=== PATIENT | male | born 1960 | race Caucasian/White ===

== ENCOUNTER 2021-10-19 07:12 | Emergency (ER) | payer OTHER ==
[~2021-10-19] VITALS: Ht 170.2 cm; Wt 69.0 kg
[2021-10-19] MEDS ORDERED: ONDANSETRON HCL 4MG TABLET PO ONE (07:45)
[2021-10-19] MEDS ORDERED: ACETAMINOPHEN 325MG TABLET PO ONE (07:45)
[2021-10-19 07:59] VITALS: BP 161/89
[2021-10-19 08:02] LABS: BASOPHILS % 0.3 % (0.0-2.0); EOSINOPHILS % 1.8 % (0.0-5.0); HEMATOCRIT. 47.8 % (42.0-52.0); LYMPHOCYTES % 18.3 % (20.0-50.0); MEAN CORPUSCULAR HEMOGLOBIN 28.6 pg (28.0-32.0); MEAN CORPUSCULAR VOLUME 85.5 fL (80.0-94.0); MEAN PLATELET VOLUME 8.4 fl (7.4-10.4); MONOCYTES % 10.7 % (2.0-8.0); NEUTROPHILS % 68.9 % (40.0-76.0); PLATELET 215 x1000/uL (130-400); RED BLOOD CELL COUNT 5.59 mill/uL (4.7-6.1); RED CELL DISTRIBUTION WIDTH 14.5 % (11.6-14.6)
[2021-10-19 08:15] LABS: CHLORIDE 104 mEq/L (98-107)
[2021-10-19 08:19] LABS: ETHANOL BLOOD < 10 mg/dL
[2021-10-19] MEDS ORDERED: ONDA4TAB5 MT (10:11)
== END 2021-10-19 10:46 | disposition home or self-care (01) ==
LOC: ER 07:12
DX: R11.2 Nausea with vomiting, unspecified (principal); F14.10 Cocaine abuse, uncomplicated
CPT/HCPCS: 36415; 80053; 80307; 80320; 80329; 85025; 99283; G0480